=== PATIENT | male | born 1980 | race Caucasian/White ===

== ENCOUNTER 2022-03-02 00:34 | Emergency (ER) | payer MEDICAID ==
[~2022-03-02] VITALS: Ht 165.1 cm; Wt 77.5 kg
[2022-03-02 01:54] VITALS: BP 150/84
[2022-03-02] MEDS ORDERED: AMLO5TAB88 MT (01:57)
== END 2022-03-02 02:07 | disposition home or self-care (01) ==
LOC: ER 00:34
DX: I10 Essential (primary) hypertension (principal); E78.00 Pure hypercholesterolemia, unspecified
CPT/HCPCS: 93005; 99283